=== PATIENT | male | born 1970 | race Caucasian/White ===

== ENCOUNTER 2020-10-31 21:01 | Emergency (ER) | payer OTHER, SELFPAY ==
--- NOTE | ~2020-10-31 | CT_ITS ---
EXAMINATION: CT abdomen pelvis wo con EXAM DATE: 10/31/2020 22:14 INDICATION: Left flank pain. Hematuria. History kidney stones. TECHNIQUE: Spiral CT of the abdomen and pelvis was performed without contrast. Axial, coronal and s agittal images were reviewed. The dose-length product (DLP) for this examination was 1340.71 mGy-cm. The exposure was tailored according to patient size (auto mA exposure control), and iterative recon struction (ASIR) was used as additional dose reduction technique. Comparison is made to prior examina tion from 03/13/2013. FINDINGS: The liver, spleen, adrenal glands and pancreas are unremarkable. Gallbladder is unremarkab le. No biliary obstruction. Extensive bilateral nephrolithiasis with hyperdense material in the lef t renal pelvis and ureter probably blood clot. This is likely causing the mild left hydronephrosis an d perinephric fat stranding. No ureteral stones identified. The prostate is unremarkable. The bladd er is unremarkable. There is no retroperitoneal or pelvic lymphadenopathy. The appendix is normal. The stomach and small bowel are unremarkable. There is expected amount of c olonic stool. No free intraperitoneal gas. The heart is normal in size. There are no pericardial or pleural effusions. The lung bases are unremarkable. There are no osteoblastic or osteolytic les ions identified. There is a left hip arthroplasty. IMPRESSION: 1. Left renal pelvic and proximal ureter hyperdense material likely blood clot. Mild obstructive nep hropathy. 2. Extensive bilateral nephrolithiasis. Which Reviewed, dictated and finalized at location A. [place] [employer] IMPRESSION: 1. Left renal pelvic and proximal ureter hyperdense material likely blood clot . Mild obstructive nephropathy. 2. Extensive bilateral nephrolithiasis. Which
[2020-10-31 21:02] VITALS: BP 154/104; PULSE 66; RESP 20; TEMP 35.9; O2SAT 100
--- NOTE | 2020-10-31 21:39 | ED.GENADULT ---
HPI - General Adult General Chief complaint: Urogenital-Male Stated complaint: kidney stone Time Seen by Provider: 10/31/20 21:12 Source: RN notes reviewed History of Present Illness HPI narrative: Patient presents to emergency department from home for left flank pain. States the pain began at 7 PM this evening and radiates from the left abdomen. States he does have a history of kidney stones and feels similar to prior states he tried taking Percocet at home and threw them up he denies any fevers or chills chest pain shortness of breath or any other symptoms of concern. He also states that he took a Flomax at home Related Data Allergies Allergy/AdvReac Type Severity Reaction Status Date / Time lisinopril Allergy Mild SWELLING Verified 06/13/18 06:14 acetaminophen Allergy Unknown Verified 06/13/18 06:14 HYDROCODONE BIT Allergy Unknown Uncoded 06/13/18 06:14 Review of Systems Review of Systems: Narrative: Gen.: Denies fevers or chills ENT: Denies congestion Respiratory: Denies shortness of breath or cough CV: Denies chest pain or palpitations GI: See HPI denies burning, urgency, frequency or hematuria Musculoskeletal: Denies back pain or muscle pain Neuro: Denies numbness, tingling, weakness or focal weakness Skin: Denies rash Except as documented, all other systems reviewed and negative PMFSH Past Medical History Medical History (Updated 10/31/20 @ 23:40 by Evan Leonard DO) Coronary artery disease Kidney stone Social History Social History (Updated 10/31/20 @ 21:42 by Evan Leonard DO) Smoking status: Never smoker Exam Narrative: Exam Narrative: APPEARANCE: No acute distress, nontoxic, resting in bed EYES: EOMI HEENT: Normocephalic, atraumatic, OMM RESPIRATORY: No respiratory distress Clear to auscultation bilaterally with no rhonchi wheezing or rales. CARDIOVASCULAR: Regular rate and rhythm without murmurs rubs or gallops. ABDOMINAL: Soft, nontender, nondistended, no rebound or guarding, left flank tenderness MUSCULOSKELETAl: Moves all extremities. No clubbing, cyanosis or edema. NEURO: Awake and alert. Following commands, speech normal, no focal deficits SKIN:: Warm, dry. No rashes lesions or abrasions PSYCHIATRIC: Normal affect/mood, Course Course Emergency Course: Discussed with Dr. Johnson for Dr. Choe presentation work-up discussed CT scans and lab results this time he feels the patient's pain is controlled he may be discharged home recommends the patient be given a dose of Rocephin this evening and placed on Bactrim with follow-up as an outpatient Discussed with patient results of workup and diagnosis. Discussed need for follow-up with primary care, proper use of medication, and reasons to return to the emergency department. Patient understands and agrees to current treatment plan I discussed with the patient he does have Flomax and Percocet at home Vital Signs Vital signs: Vital Signs Temperature 96.7 F L 10/31/20 21:02 Pulse Rate 66 10/31/20 21:02 Respiratory Rate 20 10/31/20 21:02 Blood Pressure 154/104 H 10/31/20 21:02 Pulse Oximetry 100 10/31/20 21:02 Temperature 96.7 F L 10/31/20 21:02 Pulse Rate 66 10/31/20 21:02 Respiratory Rate 20 10/31/20 21:02 Blood Pressure 154/104 H 10/31/20 21:02 Pulse Oximetry 100 10/31/20 21:02 Medical Decision Making Vital Signs Vital Signs: Vital Signs Temperature 96.7 F L 10/31/20 21:02 Pulse Rate 66 10/31/20 21:02 Respiratory Rate 20 10/31/20 21:02 Blood Pressure 154/104 H 10/31/20 21:02 Pulse Oximetry 100 10/31/20 21:02 Temperature 96.7 F L 10/31/20 21:02 Pulse Rate 66 10/31/20 21:02 Respiratory Rate 20 10/31/20 21:02 Blood Pressure 154/104 H 10/31/20 21:02 Pulse Oximetry 100 10/31/20 21:02 Lab Data Result diagrams: 10/31/20 21:49 10/31/20 21:49 Labs: Lab Results 10/31/20 10/31/20 10/31/20 Range/Units 21:49 21:49 21:50 WBC 12.2 H
[2020-10-31 21:56] LABS: Basophils Absolute Auto 0.1 K/mm3 (0.0-0.1); Basophils Percent Auto 0.4 % (0.2-1.2); Eosinophils Absolute Auto 0.1 K/mm3 (0-0.3); Eosinophils Percent Auto 0.5 % (0-4.4); Hematocrit 51.7 % (42.0-52.0); Hemoglobin 18.3 g/dL (14.0-18.0); Immature Granulocyte Absolute 0.04 K/mm3 (0.00-0.031); Immature Granulocyte Percent A 0.3 % (0-0.5); Lymphocytes Absolute Auto 1.65 K/mm3 (0.9-3.2); Lymphocytes Percent Auto 13.5 % (18.3-44.2); Mean Corpuscular HGB Conc 35.4 g/dl (32-36); Mean Corpuscular Hemoglobin 31.7 pg (26-34); Mean Corpuscular Volume 89.6 fl (80-100); Mean Platelet Volume 10.2 fl (7.4-10.4); Monocytes Absolute Auto 0.9 K/mm3 (0.1-0.6); Monocytes Percent Auto 7.6 % (2.6-8.5); Neutrophils Absolute Auto 9.5 K/mm3 (1.3-6.7); Neutrophils Percent Auto 77.7 % (45.5-73.1); Platelet Count Result 250 k/mm3 (150-375); Red Blood Count 5.77 M/mm3 (4.6-6.20); Red Cell Distribution Width 12.3 % (11.5-14.5); White Blood Count 12.2 K/mm3 (4.5-10.0)
[2020-10-31] MEDS: ONDANSETRON INJ 4 MG/2 ML VIAL (21:57)
[2020-10-31] MEDS: SODIUM CHLORIDE 0.9% IV 1,000 ML 999 ML (21:57)
[2020-10-31] MEDS: MORPHINE SULFATE (*CRX) 4 MG/ML INJ (21:57)
[2020-10-31 22:04] LABS: Add Urine Microscopic? YES; Appearance Urine Turbid (Clear); Bilirubin Urine Negative (Negative); Blood Urine 3+ (Negative); Color Urine Yellow (Yellow); Glucose Urine UA Negative (Negative); Ketones Urine Negative (Negative); Leukocyte Esterase Ur Trace LEU/UL (Negative); Mucus Urine Few /lpf; Nitrate Urine Negative (Negative); Protein Urine 2+ mg/dL (Negative); RBC Urine >75 /hpf (0-2); Specific Grav Ur 1.016 (1.001-1.035); Urobilinogen Urine Negative mg/dL (<2.0); WBC Urine 16-20 /hpf
[2020-10-31 22:12] LABS: Anion Gap 11 mmol/L (8-16); Blood Urea Nitrogen 23 mg/dL (9-20); Calcium 9.5 mg/dL (8.4-10.2); Carbon Dioxide 26 mmol/L (22-30); Chloride 99 mmol/L (98-107); Estimated Glomerular Filt Rate 58; Glucose 114 mg/dL (75-110); Potassium 3.9 mmol/L (3.4-5.0); Sodium 136 mmol/L (137-145)
[2020-10-31] MEDS: HYDROmorphone HCL INJ (*CRX) 1 MG/ML SYR IV PUSH (23:04)
[2020-10-31] MEDS: KETOROLAC 30 MG/ML VIAL (*BKC) IV PUSH (23:22)
[2020-11-01 00:32] VITALS: BP 134/86; PULSE 78; RESP 16; TEMP 36.7; O2SAT 99
== END 2020-11-01 00:33 | disposition home or self-care (01) ==
PROVIDERS: Emergency Provider Emergency Medicine
DX: N13.1 Hydronephrosis with ureteral stricture, not elsewhere classified (principal); Z87.442 Personal history of urinary calculi
CPT/HCPCS: 36415; 74176; 80048; 81001; 85025; 87086; 96361; 96365; 96375; 99284; J0696; J1170; J1885; J2270; J2405; J7030

== ENCOUNTER → 2023-02-23 07:03 | Outpatient (CLI) | payer OTHER, SELFPAY ==
--- NOTE | ~2023-02-23 | MR_ITS ---
EXAMINATION: MR elbow RT wo con DATE: 02/23/2023 07:44 INDICATION: Right elbow pain. Laceration of the muscle, fascia, and tendon. TECHNIQUE: Magnetic resonance imaging (MRI) of the right elbow was performed without intravenous cont rast. Sequences included coronal, axial, and sagittal PD-weighted FS FSE and coronal, axial, and sagi ttal PD-weighted FSE. COMPARISON: None FINDINGS: Osseous/other: Bone alignment is normal. No fracture. There is partial-thickness cartilage loss in the elbow joint. Tendons: Brachialis tendon is normal. There is a complete tear of distal biceps tendon with retraction of the tendon 4 cm from the radial attachment. There is fluid in the area of the tendon tear, likely hematom a. There is severe tendinopathy and small interstitial tear of common extensor tendon at its proximal attachment. There is severe tendinopathy and small interstitial tear of common flexor tendon at its proximal attachment. Ligaments: Radial collateral ligament, lateral ulnar collateral ligament, and ulnar collateral ligament are norm al. Cubital tunnel: The ulnar nerve is normal. Fluid: There is no elbow joint effusion. IMPRESSION: 1. Complete tear of distal biceps tendon. 2. Severe tendinopathy and small interstitial tear of common extensor tendon at its proximal attachme nt on lateral humeral epicondyle. 3. Severe tendinopathy and small interstitial tear of common flexor tendon at its proximal attachment on medial humeral epicondyle. 4. Mild elbow joint chondrosis. Reviewed, dictated and finalized at location A. IMPRESSION: 1. Complete tear of distal biceps tendon. 2. Severe tendinopathy and small interstitial tear of common extensor tendon at its proximal attachment on lateral humeral epicondyle. 3. Severe tendinopathy and small interstitial tear of common flexor tendon at i ts proximal attachment on medial humeral epicondyle. 4. Mild elbow joint chondrosis.
== END ==
PROVIDERS: PCP Chiropractor Rehabilitation; Visit Provider Chiropractor Rehabilitation
DX: S46.121A Laceration of muscle, fascia and tendon of long head of biceps, right arm, initial encounter (principal); S46.211A Strain of muscle, fascia and tendon of other parts of biceps, right arm, initial encounter; M77.11 Lateral epicondylitis, right elbow
CPT/HCPCS: 73221